=== PATIENT | male | born 1950 | race Caucasian/White ===

== ENCOUNTER → 2016-10-14 | Outpatient (CLI) | payer OTHER, BC ==
[~2016-10-14] MED LIST: ATOR10TA88 PO; FLUT0.15 NAE; IBUP-1459 PO; METO25TA3 PO; PRLSR20 PO; TRIA0.1C55 TD
[2016-10-14 09:06] LABS: EOS % 0.6 %; HEMATOCRIT 32.6 % (42-52); LYMPH ABS # 0.97 K/uL (1.2-3.4); MEAN CELL VOLUME 95.9 fL (80-100); MEAN CORPUSCULAR HEMOGLOBIN 31.8 pg (25-34); MEAN PLATELET VOLUME 9.3 fL (7.4-10.4); MONO % 3.7 %; NEUT % 65.7 %; PLATELET COUNT 115 K/uL (130-400); WHITE BLOOD COUNT 3.23 K/uL (4.8-10.8)
[2016-10-14 09:08] LABS: COMPLETE YES; MEAN CORPUSCULAR HGB CONC 33.1 g/dl (32-36)
[2016-10-14 09:35] LABS: ALB/GLOB RATIO 0.9 (0.9-2); ALKALINE PHOSPHATASE 66 U/L (45-117); ALT/SGPT 23 U/L (12-78); AST/SGOT 12 U/L (15-37); BLOOD UREA NITROGEN 17 mg/dl (7-18); CALCIUM 8.8 mg/dl (8.5-10.1); CARBON DIOXIDE 29 mmol/L (21-32); CHLORIDE 104 mmol/L (98-107); GLUCOSE 90 mg/dl (70-99); MAGNESIUM 2.5 mg/dl (1.8-2.4); POTASSIUM 4.1 mmol/L (3.5-5.1); SODIUM 139 mmol/L (136-145)
== END | disposition home or self-care (01) ==
LOC: C.LAB1850 08:45
PROVIDERS: ATTEND Nurse Practitioner Acute Care
DX: C95.00 Acute leukemia of unspecified cell type not having achieved remission (principal)

== ENCOUNTER → 2016-11-07 | Outpatient (CLI) | payer OTHER, BC ==
[2016-11-07 10:47] LABS: HEMATOCRIT 31.8 % (42-52); MEAN CORPUSCULAR HEMOGLOBIN 32.3 pg (25-34); MEAN CORPUSCULAR HGB CONC 33.3 g/dl (32-36); MEAN PLATELET VOLUME 9.8 fL (7.4-10.4); PLATELET COUNT 40 K/uL (130-400); RED BLOOD COUNT 3.28 M/uL (4.7-6.1); WHITE BLOOD COUNT 2.15 K/uL (4.8-10.8)
[2016-11-07 11:10] LABS: ALB/GLOB RATIO 1.2 (0.9-2); ALKALINE PHOSPHATASE 65 U/L (45-117); ALT/SGPT 33 U/L (12-78); AST/SGOT 16 U/L (15-37); BLOOD UREA NITROGEN 16 mg/dl (7-18); BUN/CREATININE RATIO 16.2 (10-20); CALCIUM 8.6 mg/dl (8.5-10.1); CARBON DIOXIDE 29 mmol/L (21-32); CHLORIDE 108 mmol/L (98-107); GLUCOSE 85 mg/dl (70-99); POTASSIUM 4.2 mmol/L (3.5-5.1); SODIUM 144 mmol/L (136-145)
[2016-11-07 11:17] LABS: BASO % 0.5 %; BASO ABS # 0.01 K/uL (0-0.2); COMPLETE YES; EOS % 0.9 %; IG% 0.5 %; LYMPH % 50.2 %; LYMPH ABS # 1.08 K/uL (1.2-3.4); MONO % 5.6 %; NEUT % 42.3 %
[2016-11-07 11:18] LABS: PLT ESTIMATE DECREASED
== END | disposition home or self-care (01) ==
LOC: C.LAB 10:14
PROVIDERS: ATTEND Nurse Practitioner Acute Care
DX: C92.00 Acute myeloblastic leukemia, not having achieved remission (principal)

== ENCOUNTER → 2016-11-11 | Outpatient (CLI) | payer OTHER, BC ==
[2016-11-11 10:25] LABS: ALB/GLOB RATIO 1.2 (0.9-2); ALKALINE PHOSPHATASE 72 U/L (45-117); ALT/SGPT 35 U/L (12-78); AST/SGOT 18 U/L (15-37); BLOOD UREA NITROGEN 15 mg/dl (7-18); CARBON DIOXIDE 30 mmol/L (21-32); CHLORIDE 107 mmol/L (98-107); GLUCOSE 97 mg/dl (70-99); HEMATOCRIT 32.3 % (42-52); MEAN CELL VOLUME 97.6 fL (80-100); MEAN CORPUSCULAR HEMOGLOBIN 33.2 pg (25-34); MEAN CORPUSCULAR HGB CONC 34.1 g/dl (32-36); MEAN PLATELET VOLUME 9.6 fL (7.4-10.4); PLATELET COUNT 32 K/uL (130-400); POTASSIUM 4.2 mmol/L (3.5-5.1); RED BLOOD COUNT 3.31 M/uL (4.7-6.1); SODIUM 143 mmol/L (136-145); WHITE BLOOD COUNT 1.66 K/uL (4.8-10.8)
[2016-11-11 10:49] LABS: COMPLETE YES; EOS % 0.6 %; LYMPH % 48.8 %; LYMPH ABS # 0.81 K/uL (1.2-3.4); NEUT % 44.6 %; PLT ESTIMATE SIGNIFIC DECREASED
== END | disposition home or self-care (01) ==
LOC: C.LAB 09:40
PROVIDERS: ATTEND Nurse Practitioner Acute Care
DX: C92.00 Acute myeloblastic leukemia, not having achieved remission (principal)